=== PATIENT | female | born 1940 | race Caucasian/White ===

== ENCOUNTER 2017-03-17 07:09 | Day surgery (SDC) | payer MEDICARE, OTHER ==
[~2017-03-17 07:09] MED LIST: Acetaminophen TAB* 325 MG PO PRN; Buffered Lidocaine 0.9% SYRIN* 5 ML/SYR SYRINGE INTRADERM ONE
[2017-03-17] MEDS ORDERED: Midazolam* 1 MG/ML 2 ML VIAL (2 MG) ONE (07:54)
[2017-03-17] MEDS ORDERED: fentaNYL* 50 MCG/ML 2 ML VIAL (100 MCG VIAL) ONE (07:54)
[2017-03-17] MEDS ORDERED: Propofol* 10 MG/ML 20 ML BTL IV PUSH ONE (08:32)
[2017-03-17 09:36] VITALS: BP 128/65
[2017-03-17] MEDS ORDERED: Phenylephrine 2.5% OPTH.SOL* 2 ML BTL ONE (16:39)
[2017-03-17] MEDS ORDERED: Tetracaine 0.5% OPTH.SOL 4 ML* 1 DROP BTL ONE (16:39)
[2017-03-17] MEDS ORDERED: Cyclopentolate 1% OPTH.SOL* 2 ML BTL ONE (16:39)
[2017-03-17] MEDS ORDERED: Neomycin/Polymy/Dex OPHTH.OIN* 3.5 GM ONE (16:39)
[2017-03-17] MEDS ORDERED: acetaZOLAMIDE TAB* 250 MG ONE (16:39)
[2017-03-17] MEDS ORDERED: Lidocaine 1% MPF* 2 ML VIAL ONE (16:39)
[2017-03-17] MEDS ORDERED: Tropicamide 1% OPTH.SOL* BTL ONE (16:39)
[2017-03-17] MEDS ORDERED: Flurbiprofen 0.03% OPTH.SOL* 2.5 ML BTL ONE (16:39)
[2017-03-17] MEDS ORDERED: Povidone Iodine 5% OPTH* 30 ML BTL ONE (16:39)
[2017-03-17] MEDS ORDERED: Buffered Lidocaine 0.9% SYRIN* 5 ML/SYR SYRINGE ONE (16:39)
--- NOTE | 2017-03-18 08:01 | OP ---
DATE OF OPERATION: 03/17/17 - [place] [facility] DATE OF : 38 SURGEON: Calvin Beltran MD ANESTHESIOLOGIST: Andrae Lai MD ANESTHESIA: Monitored anesthesia care. 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 OPERATIVE PROCEDURE: Cataract extraction of the right eye. IMPLANTS: SN60WF 20.5 diopter lens to the right eye and Raymond Reform capsular tension ring size 11 to the right eye. COMPLICATIONS: None. DESCRIPTION OF PROCEDURE: The patient was given phenylephrine 2.5% and cyclopentolate 1% eye drops to the operative eye in the preoperative area. The patient was brought to the operating room, where a time-out was taken to identify the correct patient, site, and side of surgery. The patient's right eye was prepped and draped in the usual sterile fashion with 5% Betadine. A second time-out was taken to verify the correct patient, site and side of surgery, and correct lens selection. A lid speculum was placed to the right eye. A 1-mm paracentesis blade was used to make a clear corneal incision in the superotemporal position. Preservative-free 1% lidocaine was injected into the anterior chamber. DisCoVisc was injected into the anterior chamber. A 2.75-mm keratome blade was used to make a triplanar incision at the infero-temporal position. A Malyugin ring was then inserted for mechanical pupillary dilation due to poor dilation and pseudo-exfoliation. A cystotome was used to initiate capsulorrhexis, which was completed with Utrata forceps in a continuous and curvilinear manner. Hydrodissection of the lens was performed with BSS on a cannula. The lens could be spun in the capsular bag. The phacoemulsification handpiece was used in the divide- and-conquer technique to remove the nucleus in its entirety with 28.24 CDE. The I/A handpiece then removed the residual cortical lens material. DisCoVisc was injected to inflate the capsular bag. The capsular tension ring size 11 was then injected into the capsular bag. The planned SN60WF 20.5 diopter lens was then injected into the capsular bag. The Malyugin ring was then removed from the anterior chamber using [place] technique. The residual DisCoVisc was then removed from the eye with the I/A handpiece. The corneal incisions were hydrated and no leaks occurred at physiologic pressure around 20 mmHg per palpation. The lid speculum was removed and drapes removed. Maxitrol ointment was placed on the surface of the operative eye. An adhesive patch and shield were then placed on the operative eye. The patient was taken to the postoperative area in stable condition. [id number]/[facility] #: [id number] KAMINI
== END 2017-03-17 09:28 | disposition home or self-care (01) ==
LOC: OREAST 07:09
PROVIDERS: ATTEND Student in an Organized Health Care Education/Training Program
DX: H25.11 Age-related nuclear cataract, right eye (principal); H34.8310 Tributary (branch) retinal vein occlusion, right eye, with macular edema; H40.1434 Capsular glaucoma with pseudoexfoliation of lens, bilateral, indeterminate stage; I10 Essential (primary) hypertension; E11.9 Type 2 diabetes mellitus without complications; E78.5 Hyperlipidemia, unspecified; R60.9 Edema, unspecified; Z87.891 Personal history of nicotine dependence
CPT/HCPCS: A9270-GY; J2250; J2704; J3010; V2632

== ENCOUNTER → 2017-03-24 13:10 | Day surgery (SDC) | payer MEDICARE, OTHER ==
[~2017-03-24 13:10] MED LIST changes: +Cyclopentolate 1% OPTH.SOL* 2 ML BTL ONE; +Flurbiprofen 0.03% OPTH.SOL* 2.5 ML BTL ONE; +Phenylephrine 2.5% OPTH.SOL* 2 ML BTL ONE; +Tropicamide 1% OPTH.SOL* BTL ONE
[2017-03-24 13:57] VITALS: BP 153/76
== END | disposition home or self-care (01) ==
LOC: OREAST 13:10
PROVIDERS: ATTEND Student in an Organized Health Care Education/Training Program
DX: Z53.8 Procedure and treatment not carried out for other reasons (principal); R06.02 Shortness of breath
CPT/HCPCS: A9270-GY

== ENCOUNTER 2017-03-24 15:03 | Emergency (ER) | payer MEDICARE, OTHER ==
[2017-03-24 16:27] VITALS: BP 181/74
--- NOTE | 2017-03-24 17:05 | UC ---
Diallo Wade Benjamin, scribed for Clara Sung MD on 03/24/17 at 1609 . Shortness of Breath HPI - HPI Summary HPI Summary: 76yo female brought to for low oxygen 79% while at preop for cataract surgery today, which was brought up to 90% after oxygen treatment and was brought to . O2 Sat was 88% at triage. 77% on room air when she was seen. Pt denies SOB, cold like symptoms, or CP, but reports occasional cough, sore throat. Pt has hx of bronchitis 6 weeks ago, which pt was put on cefdinir x 4 weeks, breo, and nebulizer. Hx of PNA several years ago, Hx PE s/p hip surgery in 2010. Stress test with Dr Bunn ([employer]) years ago. Pt has had 2 PNA shots. Pt is currently not on a blood thinner. Pt fell twice in 2015, and has chronic back, hip, and LE pain and spasms since and has been getting "pain shots". The cataract surgeon was to be Dr. Beltran, and pt's daughter reports that the anesthesiologist today was the one who called off surgery. - History of Current Complaint Stated Complaint: LOW OXGYEN LEVEL Hx Obtained From: Patient, Family/Electric Range Preparer - daughter ?: No Onset/Duration: Sudden Onset, Lasting Hours - since this morning, Still Present Timing: Constant Current Severity: Moderate Aggrevating Factors: Nothing Alleviating Factors: Oxygen Associated Signs & Symptoms: Negative: Cough (Productive), Cough (Nonproductive) , Cough (Bloody Sputum), Chest Pain w/Cough, Chest Pain Unrelated to Cough, Calf Pain/Swelling Related History: Obesity - Risk Factors Pulmonary Embolism: Previous PE Pseudomonas: Chronic Lung Disease - Allergy/Home Medications Allergies/Adverse Reactions: Allergies Allergy/AdvReac Type Severity Reaction Status Date / Time No Known Allergies Allergy Verified 03/24/17 13:46 PMH/Surg Hx/FS Hx/Imm Hx Previously Healthy: No Endocrine History: Thyroid Disease Cardiovascular History: Other Other Cardiovascular History: PE Respiratory History: COPD, Bronchitis, Pneumonia - Surgical History Surgical History: Yes Surgery Procedure, Year, and Place: left hip, 2010, [facility] [place] . right hip, 2005, . [facility] - Family History Known Family History: Positive: Cardiac Disease - [place], Other - Thyroid problems Negative: Hypertension, Diabetes - Social History Occupation: Retired Lives: With Family Alcohol Use: None Substance Use Type: None Smoking Status (MU): Former Smoker Amount Used/How Often: 2 packs a day for 25 yrs When Did the Patient Quit Smoking/Using Tobacco: 32 yrs ago Review of Systems Constitutional: Negative Skin: Negative Eyes: Negative ENT: Negative Respiratory: Shortness Of Breath, Cough Cardiovascular: Negative Gastrointestinal: Negative Genitourinary: Negative Motor: Negative Neurovascular: Negative Musculoskeletal: Arthralgia - back, hip pain Neurological: Negative Psychological: Negative All Other Systems Reviewed And Are Negative: Yes Physical Exam Triage Information Reviewed: Yes Appearance: No Pain Distress, Ill-Appearing - mild, Obese, Other: - Denies chest pain, speaks full sentences, no respiratory distress Vital Signs: Initial Vital Signs Temp 98.6 F 03/24/17 16:07 Pulse 83 03/24/17 16:07 Resp 18 03/24/17 16:07 BP 181/74 03/24/17 16:07 Pulse Ox 99 03/24/17 16:07 Vital Signs Reviewed: Yes Eyes: Positive: Conjunctiva Clear ENT: Positive: Normal ENT inspection, Hearing grossly normal. Negative: Muffled /hoarse voice Neck: Positive: Supple Respiratory: Positive: Lungs clear, No respiratory distress, Decreased breath sounds Cardiovascular: Positive: RRR, No Murmur, Pulses Normal, Brisk Capillary Refill Abdomen Description: Positive: Nontender, Soft. Negative: Distended, Guarding Musculoskeletal: Positive: Strength Intact, ROM Intact, No Edema, Other: - no calf tenderness Neurological: Positive: Alert, Muscle Tone Normal Psychological Exam: Normal Skin Exam: Normal Diagnostics - EKG Cardiac Rate: NL - 81bpm Cardiac Rhythm: Sinus: Normal - Taken at 3:30pm. normal axes, normal AV and IV conductions. Ectopy: PACs Shortness of Breath Dx - Course Course Of Treatment: Reviewed medication lists and known allergies. Discussed with Gianna DONOVAN at 1605. 76yo female brought to for O2 Sat of 77% today while at pre-op for cataract surgery. Pt was brought into and was put on oxygen with improved O2 sats to 99% on 5L. EKG shows SR, 1 PAC, no acute changes. Pt denies CP, SOB, or fever, but reports occasional cough and sore throat. Pt has hx of PNA many years ago, bronchitis 6 weeks ago, which pt was put on cefdinir x 4 weeks, breo, and nebulizer so presumed dx COPD, and hx PE after her hip surgery in 2010. Pt's cataract surgery was cancelled today. Pt is transferred to [facility] ED by ambulance with O2 in place, for further eval and treatment, and higher level of care. Daughter is with pt. - Differential Dx/Diagnosis Provider Diagnoses: acute hypoxia. High blood pressure without diagnosis of hypertension. - Physician Notification/Consults Discussed Patient Care With: Gianna Ragland - at 1605. Time Discussed With Above Provider: 16:05 Discharge - Discharge Plan Condition: Stable Disposition: TRANS HIGHER LVL OF CARE FAC Referrals: Michael VAUGHAN,Reggie Ogden [Primary Care Provider] - The documentation as recorded by the Diallo kimble Benjamin accurately reflects the service I personally performed and the decisions made by , Clara Sung MD.
== END 2017-03-24 16:35 | disposition short-term general hospital (02) ==
LOC: UCEAST 15:03
DX: R09.02 Hypoxemia (principal); R03.0 Elevated blood-pressure reading, without diagnosis of hypertension; Z86.711 Personal history of pulmonary embolism; J44.9 Chronic obstructive pulmonary disease, unspecified; Z87.09 Personal history of other diseases of the respiratory system
CPT/HCPCS: 99213; G0463

== ENCOUNTER 2017-03-24 16:56 | Inpatient (IN) | payer MEDICARE, OTHER ==
[2017-03-24 18:23] LABS: Hematocrit 39 % (35-47); Mean Corpuscular HGB Conc 33 g/dl (31-36); Mean Corpuscular Hemoglobin 29 pg (27-31); Mean Corpuscular Volume 89 fL (80-97); Mean Platelet Volume 8 um3 (7.4-10.4); Red Blood Count 4.42 10^6/ul (4.0-5.4); Red Cell Distribution Width 14 % (10.5-15); White Blood Count 7.5 10^3/ul (3.5-10.8)
[2017-03-24 18:39] LABS: Albumin 3.6 g/dL (3.2-5.2); BUN/Creatinine Ratio 19.5 (8-20); EGFR African American 93.5 (>60); EGFR Non-African American 72.7 (>60); Potassium 3.4 mmol/L (3.5-5.0); Total Protein 6.6 g/dL (6.4-8.9)
[2017-03-24 18:40] LABS: Troponin I 0.03 ng/mL (<0.04)
--- NOTE | 2017-03-24 18:45 | RAD ---
INDICATION: Short of breath COMPARISON: None TECHNIQUE: PA and lateral dual-energy views were obtained. FINDINGS: Bones/Soft Tissues: There are no acute bony findings. Cardiomediastinal: The cardiomediastinal silhouette is normal. Lungs: There are no infiltrates. Pleura: There are no pleural effusions. Other: None IMPRESSION: NO ACTIVE DISEASE.
[2017-03-24 19:05] LABS: C Reactive Protein 17.33 mg/L (< 5.00)
[2017-03-24] MEDS ORDERED: Iodixanol* (CONTRAST) 320 MG/ML 100 ML SDV IV ONE (19:34)
--- NOTE | 2017-03-24 20:11 | RAD ---
INDICATION: Chest pain. Short of breath. Evaluate for pulmonary embolus. COMPARISON: Chest x-ray same date TECHNIQUE: Axial source images were obtained from the thoracic inlet to the hemidiaphragms following administration of [address] angiographic technique was utilized. Coronal and sagittal reconstructed images were acquired. CHEST FINDINGS: Neck/thyroid: The visualized neck to include the thyroid appear normal. Chest wall: There are no acute abnormalities of the bony thorax or chest wall. There is no supraclavicular, infraclavicular, or axillary lymphadenopathy. Lungs : There are no pulmonary parenchymal masses or infiltrates. The pulmonary interstitium appears normal. There are no endobronchial lesions. Cardiomediastinal structures: There is extensive pulmonary embolic disease. Second order and distal branches of the right pulmonary artery are involved predominantly those of supply the lower lobe. On the left there is a third order in distal emboli predominantly involving the lower lobe. The heart is normal in size. There is no pericardial effusion. There is no evidence of aortic aneurysm or dissection. There is no mediastinal or hilar adenopathy. The esophagus appears normal. Pleura : There are no pleural-based masses or effusions. Other: There is a nonobstructive upper pole left renal calculus measuring 4 mm. IMPRESSION: EXTENSIVE, BILATERAL ACUTE PULMONARY EMBOLI. FINDINGS CALLED DIRECTLY TO THE EMERGENCY DEPARTMENT FOLLOWING THE EXAMINATION.
[2017-03-24] MEDS ORDERED: Albuterol 2.5 MG/3 ML NEB.SOL* (0.083%) INH PRN (20:39)
[2017-03-24] MEDS ORDERED: Melatonin (NF) 3 MG TAB PO PRN (20:41)
[2017-03-24] MEDS ORDERED: Morphine INJ* 2 MG/ML 1 ML SYRINGE IV PRN (20:41)
[2017-03-24] MEDS ORDERED: Ondansetron INJ* 2 MG/ML VIAL IV PRN (20:42)
[2017-03-24] MEDS ORDERED: NS 0.9% 1000 ML* 1,000 ML IV SCH (20:45)
[2017-03-24] MEDS ORDERED: Heparin DRIP 25,000 UNITS(*) 25,000 UNITS/500 ML BAG IVPB SCH (20:45)
[2017-03-24] MEDS ORDERED: Heparin VIAL(*) 5000 UNITS/ML VIAL (FIVE THOUSAND) IV SCH (21:00)
--- NOTE | 2017-03-24 22:04 | ED ---
Briana Wade Salem, scribed for Rashawn Loza MD on 03/24/17 at 1936 . Shortness of Breath - HPI Summary HPI Summary: Patient is a 76 y/o F who presents to the ED per EMS form urgent care with SOB since earlier today. She was scheduled for eye surgery today, but O2 sat was at 77% beforehand. She also states that 2 days ago she had SOB upon exertion. Pt reports cough, as well. Pt denies taking any blood thinners and states that she does not use O2 at home. Pt took fluid pill 2 days ago. She also reports that she had bronchitis a couple of months ago. - History of Current Complaint Chief Complaint: EDShortnessOfBreath Time Seen by Provider: 03/24/17 17:33 Hx Obtained From: Patient Onset/Duration: Gradual Onset, Lasting Hours, Still Present Timing: Intermittent Episodes Lasting: Current Severity: Moderate Dyspnea At: Rest Aggrevating Factors: Movement Alleviating Factors: Oxygen Associated Signs & Symptoms: Cough (Productive) - Allergy/Home Medications Allergies/Adverse Reactions: Allergies Allergy/AdvReac Type Severity Reaction Status Date / Time No Known Allergies Allergy Verified 03/24/17 13:46 Home Medications: Home Medications Ciprofloxacin 0.3% OPTH.KAREN* [Cipro 0.3% Opth*] 1 drop RIGHT EYE TID 03/24/17 [ History Confirmed 03/24/17] Diclofenac 1.3% PATCH (NF) [Flector 1.3% PATCH (NF)] 5 patch TRANSDERM BID 03/24 [History Confirmed 03/24/17] Levothyroxine TAB* [Synthroid TAB*] 12.5 mcg PO QAM 03/24/17 [History Confirmed 03/24/17] Losartan Potassium & Hydrochlo [Hyzaar 50/12.5 mg] 1 tab PO DAILY 03/24/17 [ History Confirmed 03/24/17] Nepafenac [Ilevro] 1 drop RIGHT EYE DAILY 03/24/17 [History Confirmed 03/24/17] prednisoLONE 1% OPHTH.SUSP* [Pred Forte 1%*] 1 drop RIGHT EYE TID 03/24/17 [ History Confirmed 03/24/17] PMH/Surg Hx/FS Hx/Imm Hx Endocrine/Hematology History: Reports: Hx Diabetes - pre , diet controled, Hx Thyroid Disease - on meds Cardiovascular History: Reports: Hx Hypertension - on meds Denies: Other Cardiovascular Problems/Disorders Respiratory History: Reports: Hx Chronic Obstructive Pulmonary Disease (COPD), Hx Pulmonary Embolism - after hip replacement 2010 Denies: Hx Asthma, Other Respiratory Problems/Disorders GI History: Reports: Hx Gastroesophageal Reflux Disease Denies: Hx Ulcer, Other GI Disorders Musculoskeletal History: Reports: Hx Arthritis - low back, hips,right knee Sensory History: Reports: Hx Cataracts - doe, Hx Contacts or Glasses - glasses, Hx Glaucoma Denies: Hx Hearing Aid Opthamlomology History: Reports: Hx Cataracts - doe, Hx Contacts or Glasses - glasses, Hx Glaucoma - Cancer History Cancer Type, Location and Year: pe after hip surgery - Surgical History Surgery Procedure, Year, and Place: left hip, 2010, [facility] [place]. right hip, 2005, [facility]. teeth removed,. laminectomy, , [facility] Hx Anesthesia Reactions: No Infectious Disease History: No Infectious Disease History: Denies: Hx Clostridium Difficile, Hx Hepatitis, Hx Human Immunodeficiency Virus (HIV), Hx of Known/Suspected MRSA, Hx Shingles, Hx Tuberculosis, Hx Known/ Suspected VRE, Hx Known/Suspected VRSA, History Other Infectious Disease, Traveled Outside the in Last 30 Days - Family History Known Family History: Positive: Cardiac Disease Negative: Hypertension, Diabetes - Social History Alcohol Use: None Hx Substance Use: No Substance Use Type: Reports: None Hx Tobacco Use: Yes Smoking Status (MU): Former Smoker Amount Used/How Often: 2 packs a day for 25 yrs Review of Systems Negative: Fever Positive: Shortness Of Breath, Cough All Other Systems Reviewed And Are Negative: Yes Physical Exam Triage Information Reviewed: Yes Vital Signs On Initial Exam: Initial Vitals Pulse Resp 85 24 03/24/17 17:03 03/24/17 17:03 Vital Signs Reviewed: Yes Appearance: Positive: Well-Appearing, No Pain Distress, Obese Skin: Positive: Warm, Skin Color Reflects Adequate Perfusion, Dry Head/Face: Positive: Normal Head/Face Inspection Eyes: Positive: Normal Neck: Positive: Supple, Nontender Respiratory/Lung Sounds: Positive: Clear to Auscultation, Breath Sounds Present Cardiovascular: Positive: RRR Abdomen Description: Positive: Nontender, Soft Bowel Sounds: Positive: Present Musculoskeletal: Positive: Normal Neurological: Positive: Normal Psychiatric: Positive: Normal, Affect/Mood Appropriate - [place] Coma Scale Coma Scale Total: 15 Diagnostics - Vital Signs Vital Signs Temp Pulse Resp BP Pulse Ox 03/24/17 19:00 86 99 03/24/17 18:00 150/67 03/24/17 17:30 80 152/67 100 03/24/17 17:11 81 31 100 03/24/17 17:09 147/68 03/24/17 17:07 97.2 F 83 24 153/72 99 03/24/17 17:03 85 24 - Laboratory Lab Results: Lab Results 03/24/17 03/24/17 03/24/17 Range/Units 18:11 18:11 18:11 WBC 7.5 (3.5-10.8) 10^3/ul RBC 4.42 (4.0-5.4) 10^6/ul Hgb 13.0 (12.0-16.0) g/dl Hct 39 (35-47) % MCV 89 (80-97) fL MCH 29 (27-31) pg MCHC 33 (31-36) g/dl RDW 14 (10.5-15) % Plt Count 133 L (150-450) 10^3/ul MPV 8 (7.4-10.4) um3 Neut % (Auto) 71.2 (38-83) % Lymph % (Auto) 20.4 L (25-47) % [place] % (Auto) 6.1 (1-9) % Eos % (Auto) 1.6 (0-6) % Baso % (Auto) 0.7 (0-2) % Absolute Neuts (auto) 5.4 (1.5-7.7) 10^3/ul Absolute Lymphs (auto) 1.5 (1.0-4.8) 10^3/ul Absolute Monos (auto) 0.5 (0-0.8) 10^3/ul Absolute Eos (auto) 0.1 (0-0.6) 10^3/ul Absolute Basos (auto) 0.1 (0-0.2) 10^3/ul Absolute Nucleated RBC 0 10^3/ul Nucleated RBC % 0 D-Dimer, Quantitative > 1050 H (Less Than 230) ng/mL Sodium 138 (133-145) mmol/L Potassium 3.4 L (3.5-5.0) mmol/L Chloride 101 (101-111) mmol/L Carbon Dioxide 30 (22-32) mmol/L Anion Gap 7 (2-11) mmol/L BUN 15 (6-24) mg/dL Creatinine 0.77 (0.51-0.95) mg/dL Est GFR ( Amer) 93.5 (>60) Est GFR (Non-Af Amer) 72.7 (>60) BUN/Creatinine Ratio 19.5 (8-20) Glucose 124 H (70-100) mg/dL Lactic Acid (0.5-2.0) mmol/L Calcium 9.0 (8.6-10.3) mg/dL Total Bilirubin 1.00 (0.2-1.0) mg/dL AST 15 (13-39) U/L ALT 8 (7-52) U/L Alkaline Phosphatase 74 (34-104) U/L Troponin I 0.03 (<0.04) ng/mL C-Reactive Protein 17.33 H (< 5.00) mg/L Total Protein 6.6 (6.4-8.9) g/dL Albumin 3.6 (3.2-5.2) g/dL Globulin 3.0 (2-4) g/dL Albumin/Globulin Ratio 1.2 (1-3) / Range/Units 18:11 WBC (3.5-10.8) 10^3/ul RBC (4.0-5.4) 10^6/ul Hgb (12.0-16.0) g/dl Hct (35-47) % MCV (80-97) fL MCH (27-31) pg MCHC (31-36) g/dl RDW (10.5-15) % Plt Count (150-450) 10^3/ul MPV (7.4-10.4) um3 Neut % (Auto) (38-83) % Lymph % (Auto) (25-47) % [place] % (Auto) (1-9) % Eos % (Auto) (0-6) % Baso % (Auto) (0-2) % Absolute Neuts (auto) (1.5-7.7) 10^3/ul Absolute Lymphs (auto) (1.0-4.8) 10^3/ul Absolute Monos (auto) (0-0.8) 10^3/ul Absolute Eos (auto) (0-0.6) 10^3/ul Absolute Basos (auto) (0-0.2) 10^3/ul Absolute Nucleated RBC 10^3/ul Nucleated RBC % D-Dimer, Quantitative (Less Than 230) ng/mL Sodium (133-145) mmol/L Potassium (3.5-5.0) mmol/L Chloride (101-111) mmol/L Carbon Dioxide (22-32) mmol/L Anion Gap (2-11) mmol/L BUN (6-24) mg/dL Creatinine (0.51-0.95) mg/dL Est GFR ( Amer) (>60) Est GFR (Non-Af Amer) (>60) BUN/Creatinine Ratio (8-20) Glucose (70-100) mg/dL Lactic Acid 0.6 (0.5-2.0) mmol/L Calcium (8.6-10.3) mg/dL Total Bilirubin (0.2-1.0) mg/dL AST (13-39) U/L ALT (7-52) U/L Alkaline Phosphatase (34-104) U/L Troponin I (<0.04) ng/mL C-Reactive Protein (< 5.00) mg/L Total Protein (6.4-8.9) g/dL Albumin (3.2-5.2) g/dL Globulin (2-4) g/dL Albumin/Globulin Ratio (1-3) Result Diagrams: 03/24/17 18:11 03/24/17 18:11 Lab Statement: Any lab studies that have been ordered have been reviewed, and results considered in the medical decision making process. - Radiology CXR Radiology Interpretation Completed By: Radiologist - IMPRESSION: NO ACTIVE DISEASE. - EKG 1720 EKG Interpretation: NSR @ 79 bpm. Re-Evaluation - Re-Evaluation First Eval Re-Evaluation Time: 21:23 Comment: Informed pt of plan. Course/Dx - Course Course Of Treatment: Ms. Contreras presented with SOB with any exertion for the last few hours. She was almost unable to walk into her MD's office from the parking lot. She feels a bit better on arrival at rest on O2. She was found to have significant PE disease and will be admitted to the hospital. - Diagnoses Provider Diagnoses: Pulmonary embolism - Physician Notifications Discussed Care of Patient With: Fabrizio Lynne Time Discussed With Above Provider: 20:36 Instructed by Provider To: Admit As Inpatient Admit/Transition Orders Completed By ED Provider: Yes - Critical Care Time Critical Care Time: 30-74 min Discharge - Discharge Plan Condition: Stable Disposition: ADMITT[facility] TO [facility] The documentation as recorded by the Briana kimble Salem accurately reflects the service I personally performed and the decisions made by , Rashawn Loza MD.
[2017-03-24] MEDS: Docusate CAP* 100 MG PO SCH (22:59)
[2017-03-25] MEDS: Acetaminophen TAB* 325 MG PO PRN ×2 (01:43→14:15)
--- NOTE | 2017-03-25 04:03 | HP ---
H&P (Free Text) History and Physical: PCP: Aramis Rodriguez MD Date/Time of Evaluation: 03/24/20172029 CC: hypoxia & SOB HPI: Mrs Contreras is a 76YO obese elderly white female who presented to pre-op admission today for cataract extraction and was found to be acutely SOB with an saO2 on RA in the mid-70s for which she was referred to [facility]. She relates a HX of long-standing intermittent SOB, but was worse than her typical upon awakening this AM. Any activity worsened her SOB, but nothing including her Breo inhaler helped. D-dimer was >1k, CTA chest positive for massive B PE. PMedHx HTN hypothyroidism depression Ambulatory Orders Amitriptyline TAB* [Elavil TAB*] 10 mg PO BEDTIME 03/12/17 Ciprofloxacin 0.3% OPTH.KAREN* [Cipro 0.3% Opth*] 1 drop RIGHT EYE TID 03/24/17 Diclofenac 1.3% PATCH (NF) [Flector 1.3% PATCH (NF)] 5 patch TRANSDERM BID 03/24 Levothyroxine TAB* [Synthroid TAB*] 12.5 mcg PO QAM 03/24/17 Losartan Potassium & Hydrochlo [Hyzaar 50/12.5 mg] 1 tab PO DAILY 03/24/17 Nepafenac [Ilevro] 1 drop RIGHT EYE DAILY 03/24/17 prednisoLONE 1% OPHTH.SUSP* [Pred Forte 1%*] 1 drop RIGHT EYE TID 03/24/17 Allergies No Known Allergies Allergy (Verified 03/24/17 13:46) SocHx: former smoker quit >30years ago, no alcohol or recreational drugs; lives with her ; full code status FamHx: Sister, Brother, & others positive for PE ROS: as above, otherwise reviewed and all were negative Constitutional: NAD, normally developed, obese elderly white female vitals: Vital Signs Temp 36.3 C 03/25/17 03:13 Pulse 88 03/25/17 00:01 Resp 20 03/25/17 03:00 BP 157/68 03/25/17 00:15 Pulse Ox 96 03/25/17 00:01 Intake & Output 03/24/17 03/24/17 03/25/17 11:59 23:59 11:59 Weight 98.248 kg HEENM: atraumatic; sclera/conjunctiva: non-icteric/clear; hearing: clinically mildly decreased; oropharynx: clear, mucosa moist Neck: soft tissue: non-tender; thyroid: normal Pulmonary: clear to auscultation B, remarkably comfortable given CT findings, fair aeration, no accessory muscle use CV: RR/RR, normal S1S2, no carotid bruit, no jugular venous distention, 2+ B DP/ PT, no edema Abdominal: soft, non-distended, non-tender, no rebound/guarding/rigidity, normoactive bowel sounds, no hepatosplenomegaly or masses, no costovertebral angle tenderness Musculoskeletal: general: grossly intact; gait: borderline stability Integumental: normal appearance and texture of exposed skin Psychiatric orientation: AA&O to PPS affect: calm mood: cooperative eye contact: fair content: reliable responses: timely insight: fair to poor Testing: Lab Results 03/24/17 03/24/17 03/24/17 Range/Units 18:11 18:11 18:11 WBC 7.5 (3.5-10.8) 10^3/ul RBC 4.42 (4.0-5.4) 10^6/ul Hgb 13.0 (12.0-16.0) g/dl Hct 39 (35-47) % MCV 89 (80-97) fL MCH 29 (27-31) pg MCHC 33 (31-36) g/dl RDW 14 (10.5-15) % Plt Count 133 L (150-450) 10^3/ul MPV 8 (7.4-10.4) um3 Neut % (Auto) 71.2 (38-83) % Lymph % (Auto) 20.4 L (25-47) % Cass % (Auto) 6.1 (1-9) % Eos % (Auto) 1.6 (0-6) % Baso % (Auto) 0.7 (0-2) % Absolute Neuts (auto) 5.4 (1.5-7.7) 10^3/ul Absolute Lymphs (auto) 1.5 (1.0-4.8) 10^3/ul Absolute Monos (auto) 0.5 (0-0.8) 10^3/ul Absolute Eos (auto) 0.1 (0-0.6) 10^3/ul Absolute Basos (auto) 0.1 (0-0.2) 10^3/ul Absolute Nucleated RBC 0 10^3/ul Nucleated RBC % 0 APTT 30.9 (26.0-36.3) seconds D-Dimer, Quantitative > 1050 H (Less Than 230) ng/mL Sodium 138 (133-145) mmol/L Potassium 3.4 L (3.5-5.0) mmol/L Chloride 101 (101-111) mmol/L Carbon Dioxide 30 (22-32) mmol/L Anion Gap 7 (2-11) mmol/L BUN 15 (6-24) mg/dL Creatinine 0.77 (0.51-0.95) mg/dL Est GFR ( Amer) 93.5 (>60) Est GFR (Non-Af Amer) 72.7 (>60) BUN/Creatinine Ratio 19.5 (8-20) Glucose 124 H (70-100) mg/dL Hemoglobin A1c (Less than 6.0) % Lactic Acid (0.5-2.0) mmol/L Calcium 9.0 (8.6-10.3) mg/dL Total Bilirubin 1.00 (0.2-1.0) mg/dL AST 15 (13-39) U/L ALT 8 (7-52) U/L Alkaline Phosphatase 74 (34-104) U/L Troponin I 0.03 (<0.04) ng/mL C-Reactive Protein 17.33 H (< 5.00) mg/L Total Protein 6.6 (6.4-8.9) g/dL Albumin 3.6 (3.2-5.2) g/dL Globulin 3.0 (2-4) g/dL Albumin/Globulin Ratio 1.2 (1-3) 03/24/17 03/24/17 Range/Units 18:11 18:11 WBC (3.5-10.8) 10^3/ul RBC (4.0-5.4) 10^6/ul Hgb (12.0-16.0) g/dl Hct (35-47) % MCV (80-97) fL MCH (27-31) pg MCHC (31-36) g/dl RDW (10.5-15) % Plt Count (150-450) 10^3/ul MPV (7.4-10.4) um3 Neut % (Auto) (38-83) % Lymph % (Auto) (25-47) % Cass % (Auto) (1-9) % Eos % (Auto) (0-6) % Baso % (Auto) (0-2) % Absolute Neuts (auto) (1.5-7.7) 10^3/ul Absolute Lymphs (auto) (1.0-4.8) 10^3/ul Absolute Monos (auto) (0-0.8) 10^3/ul Absolute Eos (auto) (0-0.6) 10^3/ul Absolute Basos (auto) (0-0.2) 10^3/ul Absolute Nucleated RBC 10^3/ul Nucleated RBC % APTT (26.0-36.3) seconds D-Dimer, Quantitative (Less Than 230) ng/mL Sodium (133-145) mmol/L Potassium (3.5-5.0) mmol/L Chloride (101-111) mmol/L Carbon Dioxide (22-32) mmol/L Anion Gap (2-11) mmol/L BUN (6-24) mg/dL Creatinine (0.51-0.95) mg/dL Est GFR ( Amer) (>60) Est GFR (Non-Af Amer) (>60) BUN/Creatinine Ratio (8-20) Glucose (70-100) mg/dL Hemoglobin A1c 6.3 H (Less than 6.0) % Lactic Acid 0.6 (0.5-2.0) mmol/L Calcium (8.6-10.3) mg/dL Total Bilirubin (0.2-1.0) mg/dL AST (13-39) U/L ALT (7-52) U/L Alkaline Phosphatase (34-104) U/L Troponin I (<0.04) ng/mL C-Reactive Protein (< 5.00) mg/L Total Protein (6.4-8.9) g/dL Albumin (3.2-5.2) g/dL Globulin (2-4) g/dL Albumin/Globulin Ratio (1-3) ECG, personally reviewed: NSR, no ischemia CXR, personally reviewed: IMPRESSION: NO ACTIVE DISEASE. CTA chest, pesonally reviewed: IMPRESSION: EXTENSIVE, BILATERAL ACUTE PULMONARY EMBOLI. Impression: 76F presenting with large B pulmonary emboli DIAGNOSIS & PLAN Primary large B pulmonary emboli : heparin GTT : check ECHO in AM : trend troponin : ICU monitoring : no indication for tPA 2nd very good clinical stability : supplemental oxygen Secondary HTN : review meds once reconciled hypothyroidism : review meds once reconciled depression : review meds once reconciled Admission Rational: inpatient for ICU management of acute massive B PE in patient at high risk of mortality in outpatient setting DVTp: heparin GTT Code Status: full HCP: daughterRussell
[2017-03-25 06:03] LABS: Hematocrit 36 % (35-47); Hemoglobin 11.8 g/dl (12.0-16.0); Mean Corpuscular HGB Conc 33 g/dl (31-36); Mean Corpuscular Hemoglobin 29 pg (27-31); Mean Corpuscular Volume 89 fL (80-97); Mean Platelet Volume 7 um3 (7.4-10.4); Red Blood Count 3.99 10^6/ul (4.0-5.4); Red Cell Distribution Width 14 % (10.5-15)
[2017-03-25] MEDS: Omeprazole CAP* 20 MG PO SCH (06:28)
[2017-03-25 06:29] LABS: BUN/Creatinine Ratio 18.8 (8-20); Calcium 8.2 mg/dL (8.6-10.3); EGFR African American 106.1 (>60); EGFR Non-African American 82.5 (>60); Potassium 3.1 mmol/L (3.5-5.0)
[2017-03-25 06:36] LABS: Troponin I 0.03 ng/mL (<0.04)
[2017-03-25] MEDS ORDERED: Potassium Chlor TAB* 20 MEQ TAB.ER PO ONE (08:18)
[2017-03-25] MEDS ORDERED: prednisoLONE 1% OPHTH.SUSP* 5 ML OPHTH.SUSP RIGHT EYE SCH (09:00)
[2017-03-25] MEDS: Docusate CAP* 100 MG PO SCH ×2 (09:21→20:29)
[2017-03-25] MEDS: Ciprofloxacin 0.3% OPTH.SOL* 2.5 ML BTL RIGHT EYE SCH ×2 (09:21→09:38)
--- NOTE | 2017-03-25 09:36 | ECHO ---
Patient: SONY MONTEZ [facility] Rec#: [id number] : 1940 Date: 03/25/2017 Age: 76y Height: 165.1 cm / 65.0 in Weight: 96.2 kg / 212.0 lbs Sex: F BSA: 2 Room#: ICU 8 Admit Date#: 03/24/2017 Type: Inpatient Referring: Fabrizio Lynne MD Reading: Jean Anderson MD Driller Operator: Christine Blackmon RN RDCS CC: Reggie Rodriguez MD Transthoracic Echocardiogram Indication: Massive bilateral PE BP: 158/67 HR: 79 Rhythm: NSR with PACs Findings History: HTN, thyroid disease, obesity, former smoker Technical Comments: The study is technically limited due to patient body habitus. The study is technically limited due to the patient's smoking history. Completed at 0920. Left Ventricle: The left ventricular chamber size is decreased.There is no evidence of septal flattening from limited available views to assess this. Mild concentric left ventricular hypertrophy is observed. Global left ventricular wall motion and contractility are within normal limits. The left ventricle appears hyperdynamic. The estimated ejection fraction is greater than 65%. Abnormal left ventricular diastolic filling is observed, consistent with impaired relaxation. The absence of left atrial enlargement suggests this finding is not chronic and may not have clinical significance. Left Atrium: The left atrial chamber size is normal. Right Ventricle: The right ventricular cavity size is normal. The right ventricular global systolic function is mildly reduced.In some views RV systolic function appears normal. Right Atrium: The right atrial cavity size is normal. Aortic Valve: The aortic valve is trileaflet. The aortic valve leaflets are mildly thickened. There is aortic annular calcification. There is no evidence of aortic regurgitation. There is no evidence of aortic stenosis. Mitral Valve: The mitral valve leaflets are mildly thickened. There is a trace of mitral regurgitation. There is no evidence of mitral stenosis. Tricuspid Valve: The tricuspid valve leaflets are normal. There is mild tricuspid regurgitation. There is evidence of moderate pulmonary hypertension. There is no tricuspid stenosis. Pulmonic Valve: The pulmonic valve structure is not well visualized. There is mild pulmonic regurgitation. Pericardium: There is no significant pericardial effusion. A pericardial fat pad is visualized. Aorta: The ascending aorta is not well visualized. The aortic arch is not well visualized. There is no dilation of the aortic root. Pulmonary Artery: The main pulmonary artery is not well visualized. Venous: The inferior vena cava appears normal in size. There is a greater than 50% respiratory change in the inferior vena cava dimension. Conclusions The study is technically limited due to patient body habitus. The study is technically limited due to the patient's smoking history. Mild concentric left ventricular hypertrophy is observed. The left ventricle appears hyperdynamic. The estimated ejection fraction is greater than 65%. The right ventricular cavity size is normal. The right ventricular global systolic function is mildly reduced ( In some views RV systolic function appears normal). There is a trace of mitral regurgitation. There is mild tricuspid regurgitation. There is evidence of moderate pulmonary hypertension. There is mild pulmonic regurgitation. No reports of prior studies are offered for comparison. Measurements Name Value Normal Range RVDdMajor (2D) 2.9 cm (2.2 - 4.4) RAd ISD 4CH 4.1 cm (3.4 - 4.9) RA (A4C)W 3.5 cm (2.9 - 4.6) IVSd (2D) 1.3 cm (0.6 - 1) LVPWd (2D) 1 cm (0.6 - 1) LVIDd (2D) 3.5 cm (3.6 - 5.4) LVIDs (2D) 2.2 cm - LV FS (2D) 37 % (25 - 45) Aortic Annulus 2.2 cm (1.4 - 2.6) Ao root diameter (2D) 3.2 cm (2.1 - 3.5) LA dimension (AP) 2D 2.7 cm (2.3 - 3.8) LAd ISD 4CH 4.1 cm (2.9 - 5.3) LA ISD 4CH W 3.5 cm (2.5 - 4.5) Name Value Normal Range LA ESV SP 4CH (A/L) 30 ml - LA ESV SP 2CH (A/L) 48 ml - LA ESV BP (A/L) 41 ml - LA ESV BP (A/L) index 20.1 ml/m2 - LA ESV SP 4CH (MOD) 28 ml - LA ESV SP 2CH (MOD) 45 ml - Name Value Normal Range MV E-wave Vmax 0.82 m/sec - MV deceleration time 374 msec - MV A-wave Vmax 1.2 m/sec - MV E:A ratio 0.67 ratio - LV septal e' Vmax 0.09 m/sec - LV lateral e' Vmax 0.07 m/sec - LV E:e' septal ratio 9.1 ratio - LV E:e' lateral ratio 11.7 ratio - Name Value Normal Range AV Vmax 1.4 m/sec - AV VTI 28.1 cm - AV peak gradient 7.4 mmHg - AV mean gradient 5.3 mmHg - LVOT Vmax 1.1 m/sec - LVOT VTI 25.2 cm - LVOT peak gradient 4.6 mmHg - LVOT mean gradient 3 mmHg - Name Value Normal Range TR Vmax 3.6 m/sec - TR peak gradient 52 mmHg - RAP 3 mmHg - RVSP 55 mmHg - IVC diameter 1.4 cm -
[2017-03-25] MEDS: Losartan TAB* 25 MG PO SCH (11:36)
[2017-03-25] MEDS: Hydrochlorothiazide TAB* 25 MG PO SCH (11:36)
[2017-03-25] MEDS: Levothyroxine TAB* 25 MCG TAB PO SCH (11:36)
--- NOTE | 2017-03-25 11:59 | PN ---
Subjective Date of Service: 03/25/17 Interval History: pt feels well. No recent travel noted, but pt has had decreased mobility ever since injuring her back in the fall 2016. Notes that she is undergoing PT but still has R sided sciatica. SOB developed 3 days prior top admission Has /o PE after a hip surgery in 2010 Objective Active Medications: Acetaminophen (Tylenol Tab*) 650 mg PO Q6H PRN PRN Reason: FEVER/PAIN Last Admin: 03/25/17 01:43 Dose: 650 mg Albuterol (Ventolin 2.5 Mg/3 Ml Neb.Sayra*) 2.5 mg INH Q2H PRN PRN Reason: SOB/WHEEZING Amitriptyline HCl (Elavil Tab*) 10 mg PO BEDTIME DINO Apixaban (Eliquis*) 10 mg PO BID DINO Ciprofloxacin HCl (Cipro 0.3% Opth*) 1 drop RIGHT EYE TID [facility] Last Admin: 03/25/17 09:38 Dose: Not Given Docusate Sodium (Colace Cap*) 200 mg PO BID [facility] Last Admin: 03/25/17 09:21 Dose: 200 mg Heparin Sodium (Porcine) (Heparin Vial(*)) 0 units IV .PER PROTOCOL [facility] Stop: 03/25/17 17:00 Last Admin: 03/24/17 21:24 Dose: 5,000 units Hydrochlorothiazide (Hydrodiuril Tab*) 12.5 mg PO DAILY [facility] Last Admin: 03/25/17 11:36 Dose: 12.5 mg Heparin Sodium/Dextrose (Heparin Drip 25,000 Units(*)) 25,000 units in 500 mls @ 0 mls/hr IVPB .(INITIAL RATE) [facility]; Per Protocol PRN Reason: Protocol Stop: 03/25/17 17:00 Last Admin: 03/24/17 21:24 Dose: 26 mls/hr Levothyroxine Sodium (Synthroid Tab*) 12.5 mcg PO QAM@0600 [facility] Last Admin: 03/25/17 11:36 Dose: 12.5 mcg Losartan Potassium (Cozaar Tab*) 50 mg PO DAILY [facility] Last Admin: 03/25/17 11:36 Dose: 50 mg Melatonin (Melatonin (Nf)) 3 mg PO BEDTIME PRN; Protocol PRN Reason: Sleep Morphine Sulfate (Morphine Inj (Syringe)*) 2 mg IV Q2H PRN PRN Reason: pain/air hunger Non-Formulary Medication (Nepafenac [Ilevro]) 1 drop RIGHT EYE DAILY [facility] Omeprazole (Prilosec Cap*) 20 mg PO DAILY@0600 [facility] Last Admin: 03/25/17 06:28 Dose: 20 mg Ondansetron HCl (Zofran Inj*) 4 mg IV Q6H PRN PRN Reason: NAUSEA Prednisolone Acetate (Pred Forte 1%*) 1 drop RIGHT EYE TID [facility] Last Admin: 03/25/17 09:22 Dose: 1 drop Vital Signs 03/24/17 03/24/17 03/24/17 21:00 21:30 22:08 Temperature Pulse Rate 83 88 Respiratory 13 Rate Blood Pressure 136/63 143/58 (mmHg) O2 Sat by Pulse 100 100 Oximetry 03/24/17 03/24/17 03/24/17 22:09 22:15 22:30 Temperature 99.0 F Pulse Rate 87 88 83 Respiratory 17 17 20 Rate Blood Pressure 165/88 165/88 145/71 (mmHg) O2 Sat by Pulse 96 96 98 Oximetry 03/24/17 03/24/17 03/24/17 22:45 23:00 23:04 Temperature Pulse Rate 82 86 86 Respiratory 21 15 22 Rate Blood Pressure 141/63 126/71 (mmHg) O2 Sat by Pulse 98 98 99 Oximetry 03/24/17 03/24/17 03/24/17 23:15 23:23 23:30 Temperature Pulse Rate 82 82 Respiratory 22 17 21 Rate Blood Pressure 140/65 138/66 (mmHg) O2 Sat by Pulse 99 98 Oximetry 03/24/17 03/25/17 03/25/17 23:45 00:00 00:01 Temperature 98.0 F Pulse Rate 84 90 88 Respiratory 27 25 23 Rate Blood Pressure 138/67 (mmHg) O2 Sat by Pulse 99 95 96 Oximetry 03/25/17 03/25/17 03/25/17 00:15 00:23 00:30 Temperature Pulse Rate 78 Respiratory 19 Rate Blood Pressure 157/68 138/60 (mmHg) O2 Sat by Pulse 98 Oximetry 03/25/17 03/25/17 03/25/17 01:00 01:30 02:00 Temperature Pulse Rate Respiratory 20 20 Rate Blood Pressure 126/55 131/63 142/66 (mmHg) O2 Sat by Pulse Oximetry 03/25/17 03/25/17 03/25/17 02:30 03:00 03:13 Temperature 97.4 F Pulse Rate Respiratory 20 Rate Blood Pressure 155/63 128/56 (mmHg) O2 Sat by Pulse Oximetry 03/25/17 03/25/17 03/25/17 03:30 04:00 04:05 Temperature Pulse Rate 75 Respiratory 18 20 Rate Blood Pressure 147/65 147/65 (mmHg) O2 Sat by Pulse 98 Oximetry 03/25/17 03/25/17 03/25/17 04:30 05:00 05:30 Temperature Pulse Rate 84 79 88 Respiratory 19 21 24 Rate Blood Pressure 133/51 139/49 158/67 (mmHg) O2 Sat by Pulse 95 97 93 Oximetry 03/25/17 03/25/17 03/25/17 06:00 06:30 07:00 Temperature Pulse Rate 79 76 79 Respiratory 22 22 17 Rate Blood Pressure 140/57 158/70 (mmHg) O2 Sat by Pulse 97 98 97 Oximetry 03/25/17 03/25/17 03/25/17 07:30 07:56 08:00 Temperature 97.5 F Pulse Rate 81 88 Respiratory 19 22 Rate Blood Pressure 125/67 149/85 (mmHg) O2 Sat by Pulse 99 95 Oximetry 03/25/17 03/25/17 03/25/17 08:30 09:00 09:30 Temperature Pulse Rate 76 83 54 Respiratory 20 20 19 Rate Blood Pressure 158/73 160/74 175/90 (mmHg) O2 Sat by Pulse 98 95 96 Oximetry 03/25/17 03/25/17 03/25/17 10:00 10:04 10:30 Temperature Pulse Rate 89 90 80 Respiratory 22 30 19 Rate Blood Pressure 177/71 143/60 (mmHg) O2 Sat by Pulse 89 93 97 Oximetry 03/25/17 03/25/17 03/25/17 11:00 11:07 11:08 Temperature Pulse Rate 78 71 Respiratory 22 17 Rate Blood Pressure 138/69 (mmHg) O2 Sat by Pulse 95 97 97 Oximetry 03/25/17 11:30 Temperature Pulse Rate 78 Respiratory 19 Rate Blood Pressure 143/71 (mmHg) O2 Sat by Pulse 97 Oximetry Oxygen Devices in Use Now: Nasal Cannula - at 2 L, 02 sat 100% Appearance: 76 yo F in nAd, AAOx3 Eyes: No Scleral Icterus, PERRLA Ears/Nose/Mouth/Throat: NL Teeth, Lips, Gums, Mucous Membranes Moist Neck: NL Appearance and Movements; NL JVP, Trachea Midline Respiratory: Symmetrical Chest Expansion and Respiratory Effort, Clear to Auscultation Cardiovascular: NL Sounds; No Murmurs; No JVD, RRR Abdominal: NL Sounds; No Tenderness; No Distention, No Hepatosplenomegaly Lymphatic: No Cervical Adenopathy Extremities: No Clubbing, Cyanosis, - - trace b/l ankle edema Skin: No Rash or Ulcers, No Nodules or Sclerosis Neurological: Alert and Oriented x 3, NL Muscle Strength and Tone Result Diagrams: 03/25/17 05:50 03/25/17 05:50 Additional Lab and Data: Lab Results 03/24/17 03/24/17 03/24/17 Range/Units 18:11 18:11 18:11 WBC 7.5 (3.5-10.8) 10^3/ul RBC 4.42 (4.0-5.4) 10^6/ul Hgb 13.0 (12.0-16.0) g/dl Hct 39 (35-47) % MCV 89 (80-97) fL MCH 29 (27-31) pg MCHC 33 (31-36) g/dl RDW 14 (10.5-15) % Plt Count 133 L (150-450) 10^3/ul MPV 8 (7.4-10.4) um3 Neut % (Auto) 71.2 (38-83) % Lymph % (Auto) 20.4 L (25-47) % Garden % (Auto) 6.1 (1-9) % Eos % (Auto) 1.6 (0-6) % Baso % (Auto) 0.7 (0-2) % Absolute Neuts (auto) 5.4 (1.5-7.7) 10^3/ul Absolute Lymphs (auto) 1.5 (1.0-4.8) 10^3/ul Absolute Monos (auto) 0.5 (0-0.8) 10^3/ul Absolute Eos (auto) 0.1 (0-0.6) 10^3/ul Absolute Basos (auto) 0.1 (0-0.2) 10^3/ul Absolute Nucleated RBC 0 10^3/ul Nucleated RBC % 0 D-Dimer, Quantitative > 1050 H (Less Than 230) ng/mL Sodium 138 (133-145) mmol/L Potassium 3.4 L (3.5-5.0) mmol/L Chloride 101 (101-111) mmol/L Carbon Dioxide 30 (22-32) mmol/L Anion Gap 7 (2-11) mmol/L BUN 15 (6-24) mg/dL Creatinine 0.77 (0.51-0.95) mg/dL Est GFR ( Amer) 93.5 (>60) Est GFR (Non-Af Amer) 72.7 (>60) BUN/Creatinine Ratio 19.5 (8-20) Glucose 124 H (70-100) mg/dL Lactic Acid (0.5-2.0) mmol/L Calcium 9.0 (8.6-10.3) mg/dL Total Bilirubin 1.00 (0.2-1.0) mg/dL AST 15 (13-39) U/L ALT 8 (7-52) U/L Alkaline Phosphatase 74 (34-104) U/L Troponin I 0.03 (<0.04) ng/mL C-Reactive Protein 17.33 H (< 5.00) mg/L Total Protein 6.6 (6.4-8.9) g/dL Albumin 3.6 (3.2-5.2) g/dL Globulin 3.0 (2-4) g/dL Albumin/Globulin Ratio 1.2 (1-3) /19/17 Range/Units 18:11 WBC (3.5-10.8) 10^3/ul RBC (4.0-5.4) 10^6/ul Hgb (12.0-16.0) g/dl Hct (35-47) % MCV (80-97) fL MCH (27-31) pg MCHC (31-36) g/dl RDW (10.5-15) % Plt Count (150-450) 10^3/ul MPV (7.4-10.4) um3 Neut % (Auto) (38-83) % Lymph % (Auto) (25-47) % Garden % (Auto) (1-9) % Eos % (Auto) (0-6) % Baso % (Auto) (0-2) % Absolute Neuts (auto) (1.5-7.7) 10^3/ul Absolute Lymphs (auto) (1.0-4.8) 10^3/ul Absolute Monos (auto) (0-0.8) 10^3/ul Absolute Eos (auto) (0-0.6) 10^3/ul Absolute Basos (auto) (0-0.2) 10^3/ul Absolute Nucleated RBC 10^3/ul Nucleated RBC % D-Dimer, Quantitative (Less Than 230) ng/mL Sodium (133-145) mmol/L Potassium (3.5-5.0) mmol/L Chloride (101-111) mmol/L Carbon Dioxide (22-32) mmol/L Anion Gap (2-11) mmol/L BUN (6-24) mg/dL Creatinine (0.51-0.95) mg/dL Est GFR ( Amer) (>60) Est GFR (Non-Af Amer) (>60) BUN/Creatinine Ratio (8-20) Glucose (70-100) mg/dL Lactic Acid 0.6 (0.5-2.0) mmol/L Calcium (8.6-10.3) mg/dL Total Bilirubin (0.2-1.0) mg/dL AST (13-39) U/L ALT (7-52) U/L Alkaline Phosphatase (34-104) U/L Troponin I (<0.04) ng/mL C-Reactive Protein (< 5.00) mg/L Total Protein (6.4-8.9) g/dL Albumin (3.2-5.2) g/dL Globulin (2-4) g/dL Albumin/Globulin Ratio (1-3) Microbiology and Other Data: Microbiology 03/25/17 05:50 Nasal Screen MRSA (PCR)([facility]) - Final Nasal Mrsa Negative Assess/Plan/Problems-Billing Assessment: 76 yo F with h/o PE in 2010 following hip surgery , HTN, hypothyroidism, been immobile x 6 months after she strained her back in 2016 now presents with PE - Patient Problems (1) Acute pulmonary embolus Comment: B/l PE's on CTA Pt is hemodyncamically stable.Echo shows EF 65% and mod pulm HTN Immobility due to back issues had been the predisposing factor, but also asked pt to see HVAC/R INSTRUCTOR for f/u to r/o pelvic malignancy. Previous PE occured after hip surgery in . Had a long discussion with pt and daughter present in th room about options for anticoagulation. We discussed Coumadin , Pradaxa, Eliquis and Xarelto as well as Coumadin and Pradaxa's reversal agents. Pt feels most comfortable with Eliquis, since her takes it also. Will start Eliquis kwesiight, d/c heparin gtt this afternnon (2) HTN (hypertension) Comment: controled, cont Losartan/HCTZ (3) Hypothyroid Comment: cont synthroid (4) Impaired glucose tolerance Comment: HbA1c at 6.3 consistent with impaired glucose tolerance (5) DVT prophylaxis Comment: heparin /Eliquis Status and Disposition: inpatient, transfer out of ICU today. PT/OT pending
[2017-03-25] MEDS: NEPAFENAC RIGHT EYE SCH (18:25)
[2017-03-25] MEDS: prednisoLONE 1% OPHTH.SUSP* 5 ML OPHTH.SUSP RIGHT EYE SCH (20:29)
[2017-03-25] MEDS: Apixaban* 5 MG TAB PO SCH (20:29)
[2017-03-25] MEDS ORDERED: Amitriptyline TAB* 10 MG PO SCH (21:00)
[2017-03-26] MEDS: Levothyroxine TAB* 25 MCG TAB PO SCH (05:23)
[2017-03-26] MEDS: Omeprazole CAP* 20 MG PO SCH (05:24)
[2017-03-26 05:36] LABS: Hematocrit 39 % (35-47); Hemoglobin 12.6 g/dl (12.0-16.0); Mean Corpuscular HGB Conc 33 g/dl (31-36); Mean Corpuscular Hemoglobin 29 pg (27-31); Mean Corpuscular Volume 89 fL (80-97); Mean Platelet Volume 8 um3 (7.4-10.4); Red Cell Distribution Width 14 % (10.5-15); White Blood Count 7.7 10^3/ul (3.5-10.8)
[2017-03-26 05:49] LABS: BUN/Creatinine Ratio 21.1 (8-20); EGFR African American 102.7 (>60); EGFR Non-African American 79.8 (>60); Potassium 3.8 mmol/L (3.5-5.0)
[2017-03-26] MEDS: Docusate CAP* 100 MG PO SCH (09:22)
[2017-03-26] MEDS: Hydrochlorothiazide TAB* 25 MG PO SCH (09:22)
[2017-03-26] MEDS: prednisoLONE 1% OPHTH.SUSP* 5 ML OPHTH.SUSP RIGHT EYE SCH (09:23)
[2017-03-26] MEDS: NEPAFENAC RIGHT EYE SCH (09:23)
[2017-03-26] MEDS: Losartan TAB* 25 MG PO SCH (09:23)
[2017-03-26] MEDS: Apixaban* 5 MG TAB PO SCH (09:25)
[2017-03-26 12:13] VITALS: BP 158/81
--- NOTE | 2017-03-26 16:00 | DS ---
ADDENDUM NOW INCLUDED ON THIS REPORT CC: Dr. Rodriguez * DISCHARGE SUMMARY: DATE OF ADMISSION: 03/24/17 DATE OF DISCHARGE: 03/26/17 PRIMARY CARE PROVIDER: Dr. Reggie Rodriguez, [place], [place], fax: . DISCHARGE DIAGNOSIS: Acute bilateral pulmonary emboli. SECONDARY DIAGNOSES: 1. History of deep venous thrombosis and pulmonary embolism subsequent to a hip replacement surgery in 2010. 2. History of hypertension. 3. Hypothyroidism. 4. Depression. MEDICATIONS AT DISCHARGE: Include Eliquis 10 mg p.o. b.i.d. for 6 days and then 5 mg b.i.d. for the remaining time. Patient's prescription was called to [facility] in [place], [place]. The remaining medications are unchanged and include, 1. Amitriptyline 10 mg at bedtime. 2. Ciprofloxacin eye drops as previously directed. 3. Flector transdermal patch 1.3% one patch b.i.d. 4. Synthroid 12.5 mcg daily. 5. Hyzaar 1 tablet daily. 6. Nepafenac 0.3% one drop right eye daily. 7. Prednisolone eye drop right eye 3 times a day. Additionally, the patient is being set up with visiting nurse in association with physical therapy, occupational therapy. LABORATORY DATA AND STUDIES PERFORMED DURING THE HOSPITAL STAY: On 03/26/17, white blood cell count 7.7, hemoglobin 12.6, hematocrit 39, and platelets of 130. Sodium 139, potassium 3.8, chloride 104, carbon dioxide 29, BUN 15, creatinine 0.71. The patient's hemoglobin A1c was 6.3 and the patient was diagnosed with impaired glucose tolerance due to that. CT angiogram of the chest obtained on admission, impression: "Extensive bilateral acute pulmonary emboli." Transthoracic echocardiogram obtained on 03/25/17 showed EF greater than 65%, marked concentric LVH, the right ventricular global systolic function mildly reduced. There was mild pulmonary regurgitation, mild tricuspid regurgitation, and trace mitral regurgitation. HOSPITAL COURSE: Cori Contreras is a very nice 76-year-old female with a history of prior PE after a hip surgery in 2010, who presented to the hospital originally planning to have cataract surgery on the same day within the [facility], but she came to hospital due to being severely short of breath. Apparently she had been short of breath for approximately 3 days prior to presentation. A CT angiogram of the chest showed extensive bilateral PE. The patient was only mildly hypoxemic and initially was kept overnight in the intensive care unit on heparin drip. She continued to be hemodynamically stable , and she was able to be transferred to telemetry monitored floor, on which she was observed for another 24 hours prior to discharge. By the time of discharge , the patient was no longer hypoxemic and not requiring oxygen. We had a long discussion with the patient and the patient's daughter in regards to options for anticoagulation. We discussed Pradaxa, Xarelto, and Eliquis as well as Coumadin and the pros and cons of using novel anticoagulants comparing with Coumadin. The patient was most comfortable using Eliquis since her was already on the same medication. The patient was started on Eliquis on 03/25/17 , and she is going to be discharged with continuation of 7 days of Eliquis at 10 mg p.o. b.i.d. and then down to 5 mg p.o. b.i.d. We also talked with the patient and patient's family that most likely precipitating factor of patients having acute PE is immobility. The patient apparently strained her back approximately 6 months ago and she had been undergoing physical therapy. Per her daughter, she had been "lying around" for quite some time now and not being really physically active. Nevertheless, this is patient's second PE in the past several years and she is recommended to follow up with her primary care provider in regards to further workup. I suggested possibility of gynecological workup to rule out malignancy. Physical Therapy and Occupational Therapy evaluated the patient and deemed the patient to be a good candidate for outpatient occupational therapy, which is going to be set up at discharge. PHYSICAL EXAM AT DISCHARGE: Blood pressure 125/57, heart rate of 82 and regular , respiratory rate 20, oxygen saturation 92% on room air, temperature 98.0. General: The patient is a very pleasant 76-year-old female who is in no acute distress. Alert and awake, oriented x3. HEENT: Head atraumatic, normocephalic. Eyes: Pupils equal, reactive to light and accommodation. Oropharynx clear. Mucosa moist. NECK: Supple. No JVD. No bruits bilaterally. Cardiovascular: Regular rate and rhythm. No murmur. Respiratory : Scant wheezes at the right lung base, otherwise clear. Abdomen: Soft, nontender. Bowel sounds present in all 4 quadrats. Extremities: There is trace bilateral ankle edema. Pulses +2 bilaterally. There is no clubbing or cyanosis. Neuro Evaluation: Cranial nerves II through XII grossly intact. Motor strength is 5/5 bilaterally. Please note that this is a short summary of the patient's hospital stay. Please refer to further medical records for details. Approximately 40 minutes was spent on the patient's discharge. ADDENDUM: Addendum to discharge summary I dictated today which is 03/26/17 is as follows: Please note that after dictating the original discharge summary and upon reevaluation of the patient, patient's oxygen saturation dropped to 86% on room air and she was deemed to be a good candidate for outpatient oxygen treatment. Patient was prescribed 2 L of oxygen continuously at home. That is going to be set up by our services as outpatient. [id number]/[facility]PS #: [id number]/CPS #: [id number] [facility]
--- NOTE | 2017-03-27 08:55 | DS ---
CC: Dr. Rodriguez * DISCHARGE SUMMARY: ADDENDUM: Addendum to discharge summary I dictated today which is 03/26/17 is as follows: Please note that after dictating the original discharge summary and upon reevaluation of the patient, patient's oxygen saturation dropped to 86% on room air and she was deemed to be a good candidate for outpatient oxygen treatment. Patient was prescribed 2 L of oxygen continuously at home. That is going to be set up by our services as outpatient. [id number]/CPS #: [id number] MTDIraj
[2017-03-28] MEDS ORDERED: prednisoLONE 1% OPHTH.SUSP* 5 ML OPHTH.SUSP RIGHT EYE SCH (09:00)
== END 2017-03-26 14:31 | disposition home health service (06) | DRG 176 ==
LOC: ED 16:56 → ICU 20:38 → MEDTELE 03-25 12:38
PROVIDERS: ADMIT Hospitalist; ATTEND Internal Medicine
DX: I26.99 Other pulmonary embolism without acute cor pulmonale (principal); I27.2 Other secondary pulmonary hypertension; I10 Essential (primary) hypertension; E03.9 Hypothyroidism, unspecified; F32.9 Major depressive disorder, single episode, unspecified; Z96.649 Presence of unspecified artificial hip joint; R73.02 Impaired glucose tolerance (oral); E66.9 Obesity, unspecified; Z68.35 Body mass index [BMI] 35.0-35.9, adult; Z86.711 Personal history of pulmonary embolism; Z86.718 Personal history of other venous thrombosis and embolism; Z79.899 Other long term (current) drug therapy; Z87.891 Personal history of nicotine dependence; Z83.2 Family history of diseases of the blood and blood-forming organs and certain disorders involving the immune mechanism
CPT/HCPCS: 36415; 71020; 71275; 80048; 80053; 83036; 83605; 84484; 85025; 85027; 85379; 85730; 86140; 87641; 93005; 93306; 94760; 94761; 99213; A9270-GY; G0463; J1644; Q9967

== ENCOUNTER 2018-08-05 11:18 | Day surgery (SDC) | payer MEDICARE, OTHER ==
[~2018-08-05 11:18] MED LIST changes: -Flurbiprofen 0.03% OPTH.SOL* 2.5 ML BTL ONE; +Ketorolac 0.5% OPHTH (NF) 0.5 % 5 ML BTL ONE; +Lidocaine 1%* 5 ML VIAL ONE; +Neomycin/Polymy/Dex OPHTH.OIN* 3.5 GM ONE; +Povidone Iodine 5% OPTH* 30 ML BTL ONE; +Tetracaine 0.5% OPTH.SOL 4 ML* 1 DROP BTL ONE; +acetaZOLAMIDE TAB* 250 MG ONE
[2018-08-05] MEDS ORDERED: Trypan Blue 0.06% SOL* 0.5 ML BTL ONE ×2 (11:35→12:06)
[2018-08-05] MEDS ORDERED: Midazolam* 1 MG/ML 2 ML VIAL (2 MG) ONE (11:40)
[2018-08-05 13:04] VITALS: BP 152/72
--- NOTE | 2018-08-06 10:05 | OP ---
DATE OF OPERATION: 08/05/18 - [facility] DATE OF : 38 SURGEON: Calvin Beltran MD. ANESTHESIA: Monitored anesthesia care. PRE-OP DIAGNOSIS: Cataract, left eye with pseudoexfoliation. POST-OP DIAGNOSIS: Cataract, left eye with pseudoexfoliation. OPERATIVE PROCEDURE: Extracapsular cataract extraction of the left eye with intraocular lens implant. IMPLANTS: SN60WF 20.5 diopter lens and capsular tension ring size 11 to the left eye. COMPLICATIONS: None. DESCRIPTION OF PROCEDURE: The patient was given phenylephrine 2.5% and cyclopentolate 1% eye drops to the operative eye in the preoperative area. The patient was taken to the operating room where a time-out was taken to identify the correct patient, site and side of surgery. The patient's left eye was prepped and draped in the usual sterile fashion with 5% Betadine. A second time -out was taken to verify the correct patient, site, and side of surgery and correct lens implant. A lid speculum was placed to the left eye. A 1-mm paracentesis blade was used to create a clear corneal incision in the inferotemporal position. Preservative-free 1% lidocaine was injected into the anterior chamber. An air bubble was then injected to the anterior chamber and VisionBlue was then used to stain the anterior capsule. The VisionBlue was then washed from the anterior chamber with BSS. Healon was then injected into the anterior chamber. A 2.75 mm keratome blade was used to make a triplanar incision at the superotemporal position. A Malyugin ring was then inserted due to poor pupil dilation. A cystotome initiated a capsulorrhexis, which was completed with MST forceps in a continuous and curvilinear manner. Hydrodissection of the lens was performed with BSS on a cannula. The lens could be spun in the capsular bag. The phacoemulsification handpiece was used with a divide and conquer technique to remove the nucleus with 73.49 CDE. DisCoVisc was reinjected during phacoemulsification in order to protect the corneal endothelium. The I/A handpiece then removed the residual cortical lens material. DisCoVisc was injected to inflate the capsular bag. A size 11 CTR was loaded into the screen writer, but upon retraction into the screen writer, the distal loop fractured and fell from the ring. Therefore, that CTR was disposed off and a new CTR was loaded and then injected into the capsular bag. The planned SN60WF 20.5 diopter lens was then injected into the capsular bag. The Malyugin ring was then removed from the anterior chamber using a [place] technique. The residual DisCoVisc was removed from the eye with the I/A handpiece. The corneal incisions were hydrated and no leaks occurred at physiologic pressure around 20 mmHg per palpation. The lid speculum was removed and drapes removed. Maxitrol ointment was placed to the surface of the operative eye. An adhesive patch and shield were then placed on the operating eye. The patient was taken to the postoperative area in stable condition. [id number]/[facility] #: [id number] KAMINI
== END 2018-08-05 13:22 | disposition home or self-care (01) ==
LOC: OREAST 11:18
PROVIDERS: ATTEND Student in an Organized Health Care Education/Training Program
DX: H25.812 Combined forms of age-related cataract, left eye (principal); H40.1434 Capsular glaucoma with pseudoexfoliation of lens, bilateral, indeterminate stage; Z87.891 Personal history of nicotine dependence; Z79.01 Long term (current) use of anticoagulants; I10 Essential (primary) hypertension; E03.9 Hypothyroidism, unspecified; R73.03 Prediabetes; J44.9 Chronic obstructive pulmonary disease, unspecified; M19.90 Unspecified osteoarthritis, unspecified site
CPT/HCPCS: A9270-GY; J2250; V2632